=== PATIENT | male | born 2000 | race Hispanic/Latino ===

== ENCOUNTER 2024-04-25 13:16 | Emergency (ER) | payer SELFPAY ==
[2024-04-25 13:20] VITALS: BP 135/85
[2024-04-25] MEDS: AUGMENTIN 875 MG/125 MG 1 TABLET PO (16:03)
[2024-04-25] MEDS: DECADRON 10 MG PO (16:03)
--- NOTE | 2024-04-25 16:06 | ED.GENMED ---
History of Present Illness
General
Chief Complaint: Ear Problem
Source: patient
Exam Limitations: none
Time Seen by Provider: 04/25/24 15:09
Nursing documentation reviewed up to this point in time: agreed with
History of Present Illness
History of Present Illness:
24-year-old male presenting to the emergency department today with concerns of left ear pain over the past week. This seemed to happen after having the flu. He was started on amoxicillin by urgent care has been taking this without relief. Denies
any ongoing fevers chest pain shortness of breath trouble swallowing or breathing
Past History
Past History
ED Past Medical History: None
ED Past Surgical History: None
Social History
Tobacco: Non-smoker
Review of Systems
Review of Systems
Allergies reviewed?: Yes
All Other Systems: ROS reviewed and negative except as documented in HPI and ROS
Phy Exam
Physical Exam
Physical Exam:
GENERAL: Alert , in no apparent distress
EYE: pupils equal and reactive
NECK: Supple, no significant adenopathy.
ENT: Initial cerumen impaction to the left ear once removed there was bulging redness to the tympanic membrane o/p clr, mmm.
CARDIAC: Regular rate and rhythm .
LUNGS: Clear breath sounds bilaterally, no acute respiratory distress, no wheezes/rales/rhonchi
ABDOMEN: Soft, without focal tenderness, no r/g, no cvat
NEUROLOGICAL: Alert and oriented, no focal neuro deficits
SKIN: Warm and dry, skin intact.
MUSCULOSKELETAL: No edema, well perfused.
PSYCH: Normal and appropriate interaction.
Course
Orders/Labs/Results
Orders:
Orders
04/25/24 15:59
Amoxicillin 875 mg/Clav 125 mg [Augmentin 875 mg/125 mg] 1 tablet PO NOW STA
Dexamethasone [Decadron] 10 mg PO NOW STA
Vital Signs
Initial and Last Documented VS:
Initial Vital Signs
Temp Pulse Resp BP Pulse Ox
98.3 F 81 18 135/85 99
04/25/24 13:20 04/25/24 13:20 04/25/24 13:20 04/25/24 13:20 04/25/24 13:20
Last Documented Vital Signs
Temp Pulse Resp BP Pulse Ox
98.3 F 81 18 135/85 99
04/25/24 13:20 04/25/24 13:20 04/25/24 13:20 04/25/24 13:20 04/25/24 13:20
Procedures
Foreign Body Removal-Ear
Left External canal:
Tenderness: mild
Any local drainage: none
External ear canal cleaned with removal of cerumen using: irrigation
Removal of foreign body using: irrigation
Exam of canal after removal: no inflammation
MDM/Problems Addressed
MDM/Problems Addressed:
44-year-old male presenting to the emergency department today with concerns of ongoing left-sided ear discomfort. Started on amoxicillin over the past week without relief. Vital signs normal on arrival. Initial assessment of the left ear showed
cerumen impaction. This was removed and revealed a tympanic membrane with significant bulging and redness. Appears to be consistent otitis media switch to Augmentin also given a steroid to help with inflammation otherwise will follow-up with ENT
for any ongoing issues.
*Critical Care Note
Total Time (30-74mins, 75-104mins- exclusive of procedures): Not Applicable
ED Attending Note
-
Portions of this chart may have been created with voice recognition software.� Occasional wrong word or��sound alike� substitutions may have occurred due to the inherent limitations of voice recognition software.
Discharge Plan
Departure
Patient Disposition: Home (Routine Discharge)
Date of Disposition: 04/25/24
Time of Disposition: 16:16
Patient with high blood pressure during this ER visit?: No
Condition: Good
Covid-19: Not Applicable
Discharge Problem:
Otitis media, Cerumen impaction
Instructions: Ear Wax Impaction (DC), Serous Otitis Media (DC)
Prescriptions:
New
amoxicillin-pot clavulanate 875-125 mg tablet
1 tab PO BID 7 Days Qty: 14 0RF
Referrals:
NONE,* [Family Provider] -
Gilmar Oscar MD [Active] - Follow up in 10 days
Activity Restrictions/Additional Instructions:
You came to the emergency department today with concerns of ongoing discomfort to the left ear. Please take the newly prescribed antibiotic and follow-up closely with the ear doctor if symptoms are ongoing. Return for any worsening, new or
concerning symptoms.
Interventions
Interventions:
*Risk Screen - Suicide Last Done: 04/25/24 13:20
*General Assessment Last Done: 04/25/24 13:20
*ED COVID-19 Vaccine History Last Done: 04/25/24 13:20
Discharge Date and Time
Print Language: CHINESE
[2024-04-25 16:33] VITALS: BP 130/81
== END 2024-04-25 16:34 | disposition home or self-care (01) ==
LOC: EMR 13:16
PROVIDERS: EMERGENCY PHYSICIAN Emergency Medicine
DX: H92.02 Otalgia, left ear (principal); H61.22 Impacted cerumen, left ear; Z79.2 Long term (current) use of antibiotics
CPT/HCPCS: 99282